=== PATIENT | female | born 1955 | race Caucasian/White ===

== ENCOUNTER 2018-04-29 21:16 | Inpatient (IN) | payer OTHER ==
[~2018-04-29] VITALS: Ht 170.2 cm; Wt 87.1 kg
--- NOTE | ~2018-04-29 | O ---
[facility] [place] [address] OPERATIVE REPORT Name: WILLY COSTA Room #: 419-P ADM IN M.R.#: [id number] Admission: 04/29/18 Attend Phys: Jeremy Plaza DO Discharge: Date of : 51 Report #: [id number] THIS REPORT FOR: //name// CC: Jeremy Guevara SURGEON: Emmanuel Murphy DPM. PREOPERATIVE DIAGNOSIS: Abscess and cellulitis, left foot. POSTOPERATIVE DIAGNOSIS: Abscess and cellulitis, left foot. PROCEDURE: Incision and drainage of abscess, left foot. ANESTHESIA: IV sedation, local nerve block. HEMOSTASIS: Not provided during the procedure. ESTIMATED BLOOD LOSS: Minimal. COMPLICATIONS: There were no complications during the procedure or the anesthesia. PREOPERATIVE COURSE: The patient was consulted on 04/30/2018 as she was admitted to the hospital with a painful swollen foot. Infectious Disease was consulted prior to my seeing her and placed her on a regimen of antibiotics. Review of labs prior to surgery showed bacteremia of unknown pathogen and a CT scan revealing an abscess in the left foot plantar aspect. My discussion with the patient on Tuesday04/30/2018 discovered a very painful left foot, history of Charcot feet on the left foot and prior surgery including hardware and arthrodesis on the left foot as well. 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 This eventually became painful until she presented to [facility] and was admitted to the floor, at which time I evaluated her. It was determined due to the abscess and the bacteremia and the swollen and painful foot that incision and drainage would be the best appropriate action to be taken and was described to the patient and she agreed to the risk and complication as well as the technical aspects of the surgery. DESCRIPTION OF PROCEDURE: The patient was wheeled to the operating room in usual supine condition, transferred to the operating table, given IV sedation. Once IV sedation was found to be adequate, local nerve block was given to the left foot. The left foot was then prepped and draped in the usual sterile manner. Upon reentering the operating room, an incision was made on the plantar aspect of the foot in a serpentine fashion incorporating the source of the abscess, which is a 2-3 mm ulceration on the plantar arch. The superficial and deep fascia were . There was some pathological tissue in the center [address] [address] OPERATIVE REPORT Name: WILLY COSTA Room #: 419-P [facility] IN M.R.#: [id number] Admission: 04/29/18 Attend Phys: Jeremy Plaza DO Discharge: Date of : 51 Report #: [id number] portion of the wound where the abscess was suspected. There was, however, no purulence or odor. The pathological tissue, which resembled a cystic lesion was removed. Further inspection upon deep dissection revealed normal white tissue. The bone was palpated and found to be hard and noncystic. No necrosis was evidenced deep and no sinus tract was evidenced. A deep wound culture was taken. The wound was copiously flushed with a pulse lavage with bacitracin solution. The wound was reopposed upon the proximal and distal portions of the wound. The central portion of the wound was left open in an area of approximately 5-6 mm to close by secondary intention. Sterile dressing was placed on the foot and the patient left the operating room in stable condition. She will report back to the floor, room 419 and continue to see Infectious Disease until bacteremia and/or sepsis is under control. I would assume and I will follow up with her tomorrow morning on the floor, take a look at the wound and see how she is doing. She will resume all orders as she had on the floor regarding care of her diabetes and pain management. By: [id number] Emmanuel Murphy, JES /nt
--- NOTE | ~2018-04-29 | EKG ---
[address] [place] [address] ELECTROCARDIOGRAM REPORT Name: WILLY COSTA Room #: 419-P [facility] IN ..#: [id number] Admission: 04/29/18 Attend Phys: Toribio Arellano MD Discharge: Date of : 51 Report #: [id number] THIS REPORT FOR: //name// [facility] ED Test Date: 2018-04-29 Test Time: 23:16:56 Pat Name: WILLY COSTA Department: Room: Gender: F Marble Coper: zarina : 1955 Requested By: Buddy Mortensen Order Number: [id number] MD: Mason Coreas Measurements Intervals [place] Rate: 79 P: 22 NE: 147 QRS: 16 QRSD: 90 T: 47 QT: 397 QTc: 456 Interpretive Statements Sinus rhythm Normal tracing Compared to ECG 08/11/2011 06:34:35 No significant changes Electronically Signed On 04-30-2018 14:08:53 CDT by Mason Coreas [email or web address] <ELECTRONICALLY SIGNED> By: Mason Coreas MD, [facility] 04/30/18 1408 D: [id number] 15 Mason Coreas MD, FACC /EPI
--- NOTE | ~2018-04-29 | HC ---
[facility] [place] [address] CONSULTATION Name: WILLY COSTA Room #: 419-P ADM IN M.R.#: [id number] Admission: 04/29/18 Attend Phys: Jeremy Plaza DO Discharge: Date of : 51 Report #: [id number] THIS REPORT FOR: //name// CC: Jeremy Mccarty [facility] DATE OF SERVICE: 05/01/2018 INFECTIOUS DISEASE CONSULTATION ATTENDING PHYSICIAN: Toribio Arellano MD REQUESTING PHYSICIAN: Jeremy Plaza DO REASON FOR CONSULTATION: Left diabetic foot infection. HISTORY OF PRESENT ILLNESS: The patient is a 62-year-old white woman, with history of diabetes mellitus, on treatment with insulin pump, who apparently has Charcot feet and multiple previous surgeries to feet, particularly to the left foot, who has developed some increasing pain to the left foot associated with significant leukocytosis. She is admitted through the Emergency Room. CT scan revealed a fluid collection on the foot. She undergoes incision and drainage by Dr. Murphy today. The patient is still under the effects of the anesthetic. PAST MEDICAL HISTORY: Diabetes mellitus with Charcot foot, history of diabetic neuropathy. Ulcerations of left foot, under the care of several podiatrists. DRUG ALLERGIES: None listed. MEDICATIONS: The patient is currently on treatment with gabapentin, vancomycin 1250 mg IV every 12 hours, Unasyn 3 g IV every 6 hours, hydrochlorothiazide 25 mg p.o. daily, duloxetine 60 mg p.o. daily, aspirin 81 mg daily, lisinopril 20 mg daily, insulin lispro per sliding scale, p.r.n. glucose, glucagon, polyethylene glycol daily, nitroglycerin p.r.n., morphine sulfate p.r.n., acetaminophen and ondansetron p.r.n. SOCIAL HISTORY: See H and P. FAMILY HISTORY: See H and P. REVIEW OF SYSTEMS: Foot pain, some nausea, vomiting. No fevers. She reports also significant leukocytosis, improving of lately. PHYSICAL EXAMINATION: GENERAL: Well-developed woman, not toxic looking. VITAL SIGNS: Temperature maximum since admission 99.5, pulse between [address] [address] CONSULTATION Name: WILLY COSTA Room #: 419-P [facility] IN [facility].#: [id number] Admission: 04/29/18 Attend Phys: Jeremy Plaza DO Discharge: Date of : 51 Report #: [id number] per minute, respirations between 12 and 20 per minute, BP 117/51, O2 saturation 97% on room air. HEENMT: Within range. NECK: Supple, no thyromegaly. BREASTS: Deferred. LUNGS: Clear. HEART: S1, S2. No gallop or murmur. ABDOMEN: Soft, no masses or megaly. EXTREMITIES: Reveal multiple surgical scars on the left foot and a new wound on the sole of the foot, mid foot area. No obvious cellulitis, scars on the right foot noted as well. LABORATORY DATA: Sodium 132, potassium 4, BUN 34, creatinine 1.4, glucose 197. On admission, white blood cell count was 19,000; the next day, it got up to 22,100 and today is 15,000, hemoglobin 10.1 g/dL, platelets 221,000. The white blood cell count differential revealed 88% segmented neutrophils on admission date, 85% neutrophils today. Sed rate 39 mm per hour. The vancomycin trough today is 29 mcg/mL. Hemoglobin A1c 6.6%. MICROBIOLOGY DATA: The routine blood cultures obtained on 04/29/2018 remain negative so far. The foot cultures sent today is pending. RADIOLOGY EVALUATION: Chest x-ray, no abnormalities. X-ray of the foot revealed multiple pins, plates and needle on the left foot. CT scan of the left foot revealed soft tissue wound ulcer, plantar medial aspect mid foot at the level of the first tarsometatarsal joint level with wound ulceration measuring 1.4 ____ longitudinal wound. No focal fluid collection to suggest abscess and no underlying cortical destruction or periostitis to suggest osteomyelitis. ASSESSMENT: 1. Left diabetic foot ulcer with no obvious signs of osteomyelitis by CT scanning. 2. Status post incision and drainage, left foot ulcer. 3. History of Charcot feet with multiple surgical interventions to feet. 4. Leukocytosis, improving. SUGGESTIONS: At present, recommend continuation of treatment with vancomycin and Zosyn. We will obtain methicillin-resistant Staphylococcus aureus screen. If there is failure to document methicillin-resistant Staphylococcus aureus infection, recommend discontinuation of vancomycin. Possibly, the dose of Unasyn may be decreased as well. [address] [address] CONSULTATION Name: WILLY COSTA Room #: 419-P ADM IN M.R.#: [id number] Admission: 04/29/18 Attend Phys: Jeremy Plaza, DO Discharge: Date of : 51 Report #: [id number] Plaza, thank you for requesting my suggestions in the care of your patient. <ELECTRONICALLY SIGNED> By: Eder Guzman MD 05/02/18 1314 1424 1813 Eder Guzman MD /nt
[~2018-04-29 21:16] MED LIST: ASPIRIN EC81 M1 PO; CYMBALTA60 MG PO; HYDROCHLOROTHIA25 M1 PO; NOVOLOG100 UNIT/1 SQ; SIMVASTATIN40 MG PO; ZESTRIL20 MG PO
[2018-04-29 21:26] VITALS: BP 153/70
[2018-04-29] MEDS ORDERED: NEURONTIN 300300 M1 PO (21:56)
[2018-04-29 22:04] LABS: ABSOLUTE NEUTROPHILS 16.9 thou/uL (1.4-8.2); BASOPHILS 0.2 % (0.0-2.0); HEMOGLOBIN 13.1 gm/dL (12.0-15.0); LYMPHOCYTES 4.8 % (24.0-44.0); MCH 30.4 pg (26.0-34.0); MCHC 33.7 g/dL (28.0-37.0); MCV 90.3 fL (80.0-100.0); MONOCYTES 6.2 % (1.0-8.0); PLATELET COUNT 282 thou/uL (150-400); POLYS 88.8 % (36.0-66.0); RBC 4.31 mil/uL (4.20-5.00); RDW 14.5 % (10.5-14.5)
[2018-04-29 22:09] LABS: CALCIUM 8.9 mg/dL (8.5-10.1); CREATININE 1.1 mg/dL (0.6-1.0); POTASSIUM 3.7 mmol/L (3.5-5.1)
[2018-04-29 22:15] LABS: ALBUMIN 3.8 g/dL (3.4-5.0); TOTAL BILIRUBIN 0.6 mg/dL (<0.1-1.0)
[2018-04-29 23:43] VITALS: BP 139/66
[2018-04-30 00:26] VITALS: BP 142/61
[2018-04-30 03:46] LABS: HEMATOCRIT 34.7 % (37.0-47.0); HEMOGLOBIN 11.6 gm/dL (12.0-15.0); MCH 30.9 pg (26.0-34.0); MCHC 33.5 g/dL (28.0-37.0); MCV 92.3 fL (80.0-100.0); RBC 3.76 mil/uL (4.20-5.00); RDW 14.4 % (10.5-14.5); WBC 22.1 thou/uL (4.0-11.0)
[2018-04-30 04:03] LABS: ANION GAP 11 mmol/L (7-16); BUN 23 mg/dL (7-18); CALCIUM 8.1 mg/dL (8.5-10.1); CHLORIDE 100 mmol/L (98-107); CO2 22 mmol/L (21-32); CREATININE 1.1 mg/dL (0.6-1.0); GLUCOSE 259 mg/dL (74-106); SODIUM 133 mmol/L (136-145); TROPONIN-I <0.06 ng/mL (<0.06)
[2018-04-30 04:22] VITALS: BP 121/59
[2018-04-30 04:23] LABS: POTASSIUM 4.7 mmol/L (3.5-5.1)
[2018-04-30 08:30] VITALS: BP 119/55
[2018-04-30 16:11] LABS: GLYCOHEMOGLOBIN (HGB A1C) 6.6 % (4.8-5.6)
[2018-04-30 19:38] VITALS: BP 117/51
[2018-04-30 21:40] LABS: TSH 0.213 uIU/mL (0.358-3.740)
[2018-05-01 04:05] VITALS: BP 120/55
[2018-05-01 06:17] LABS: ABSOLUTE NEUTROPHILS 12.9 thou/uL (1.4-8.2); BASOPHILS 0.2 % (0.0-2.0); EOSINOPHILS 0.1 % (0.0-3.0); HEMATOCRIT 29.6 % (37.0-47.0); HEMOGLOBIN 10.1 gm/dL (12.0-15.0); MCH 31.5 pg (26.0-34.0); MCHC 34.3 g/dL (28.0-37.0); MCV 91.8 fL (80.0-100.0); MONOCYTES 7.8 % (1.0-8.0); PLATELET COUNT 221 thou/uL (150-400); POLYS 85.9 % (36.0-66.0); RBC 3.22 mil/uL (4.20-5.00)
[2018-05-01 06:26] LABS: URINE BILIRUBIN NEGATIVE (Negative); URINE BLOOD NEGATIVE (Negative); URINE CLARITY CLEAR; URINE COLOR YELLOW; URINE GLUCOSE-RANDOM* NEGATIVE (Negative); URINE KETONES NEGATIVE (Negative); URINE LEUKOCYTES-REFLEX NEGATIVE (Negative); URINE NITRITE-REFLEX NEGATIVE (Negative); URINE PROTEIN (DIPSTICK) NEGATIVE (Negative); URINE SPECIFIC GRAVITY >= 1.030 (1.005-1.035); URINE UROBILINOGEN 0.2 E.U./dl (0.2-1.0)
[2018-05-01 06:37] LABS: CALCIUM 7.7 mg/dL (8.5-10.1); CREATININE 1.4 mg/dL (0.6-1.0)
[2018-05-01 07:50] VITALS: BP 116/58
[2018-05-01 19:26] VITALS: BP 171/64
[2018-05-02 04:04] VITALS: BP 150/65
[2018-05-02 07:13] VITALS: BP 165/73
[2018-05-02 15:39] VITALS: BP 169/80
[2018-05-02 19:45] VITALS: BP 156/74
[2018-05-03 04:13] VITALS: BP 156/77
[2018-05-03 07:22] VITALS: BP 188/96
[2018-05-03 19:55] VITALS: BP 176/89
[2018-05-04 00:12] VITALS: BP 159/90
[2018-05-04 03:47] VITALS: BP 178/92
[2018-05-04 07:45] VITALS: BP 186/94
[2018-05-04 12:34] VITALS: BP 145/78
[2018-05-04 15:45] VITALS: BP 156/81
[2018-05-04 19:14] VITALS: BP 177/76
[2018-05-05 04:27] VITALS: BP 168/76
[2018-05-05 07:30] VITALS: BP 162/81
[2018-05-05] MEDS ORDERED: AUGMENTIN 875-1 EACH PO (09:41)
[2018-05-05 09:54] VITALS: BP 162/71
== END 2018-05-05 12:26 | disposition home or self-care (01) | DRG 853 ==
LOC: ER 21:16 → 4E 23:24 → EROBS 23:24 → 4E 04-30 00:58
PROVIDERS: Emergency Medicine; Internal Medicine Geriatric Medicine; Nurse Practitioner Family
PROC: 0J9R0ZZ Drainage of Left Foot Subcutaneous Tissue and Fascia, Open Approach (ICD-10-PCS; principal; 2018-05-01)
DX: A41.9 Sepsis, unspecified organism (principal); E43 Unspecified severe protein-calorie malnutrition; L03.116 Cellulitis of left lower limb; L02.612 Cutaneous abscess of left foot; K21.9 Gastro-esophageal reflux disease without esophagitis; E11.621 Type 2 diabetes mellitus with foot ulcer; I10 Essential (primary) hypertension; E11.610 Type 2 diabetes mellitus with diabetic neuropathic arthropathy; L97.529 Non-pressure chronic ulcer of other part of left foot with unspecified severity; F32.9 Major depressive disorder, single episode, unspecified; F41.9 Anxiety disorder, unspecified; Z68.30 Body mass index [BMI] 30.0-30.9, adult; Z98.1 Arthrodesis status; Z79.4 Long term (current) use of insulin; Z79.82 Long term (current) use of aspirin; Z79.899 Other long term (current) drug therapy
CPT/HCPCS: 10183; 50010; 50101; 50386; 53078; 57091; 62110; 62850; 70005